=== PATIENT | female | born 1990 | race African-American/Black ===

== ENCOUNTER 2017-06-25 08:54 | Day surgery (SDC) | payer MEDICAID, OTHER ==
[2017-06-25 08:59] VITALS: BMI 38.4
[2017-06-25] MEDS ORDERED: NEOSTIGMINE INJ ONE (09:08)
[2017-06-25] MEDS ORDERED: XYLOCAINE 2 % (PLAIN) ONE (09:08)
[2017-06-25] MEDS ORDERED: ZOFRAN INJ 4 MG VIAL ONE (09:08)
[2017-06-25] MEDS ORDERED: ROBINUL ONE (09:08)
[2017-06-25] MEDS ORDERED: EPHEDRINE SULFATE INJ ONE (09:08)
[2017-06-25] MEDS ORDERED: QUELICIN (OR ANECTINE) ONE (09:08)
[2017-06-25] MEDS ORDERED: NORCURON INJ 10 MG VIAL ONE (09:08)
[2017-06-25] MEDS ORDERED: VERSED ONE (09:08)
[2017-06-25] MEDS ORDERED: DIPRIVAN VIAL ONE (09:08)
[2017-06-25 10:03] LABS: BASOPHILS % (AUTO) 0.3 % (0.2-1.0); EOSINOPHILS % (AUTO) 0.5 % (0.9-2.9); HEMATOCRIT 31.3 % (36.0-47.0); HEMOGLOBIN 10.8 g/dL (12.0-16.0); LYMPHOCYTES # (AUTO) 1.8 X10^3/uL (1.3-2.9); LYMPHOCYTES % (AUTO) 25.8 % (21.0-51.0); MEAN CORPUSCULAR HEMOGLOBIN 28.9 pg (27.0-34.0); MEAN CORPUSCULAR HGB CONC 34.6 g/dL (33.0-35.0); MEAN CORPUSCULAR VOLUME 83.5 fL (80.0-100.0); MEAN PLATELET VOLUME 8.3 fL (7.4-11.0); MONOCYTES # (AUTO) 0.6 x10^3/uL (0.3-0.8); MONOCYTES % (AUTO) 8.2 % (0.0-13.0); NEUTROPHILS # (AUTO) 4.5 x10^3/uL (2.2-4.8); NEUTROPHILS % (AUTO) 65.2 % (42.0-75.0); PLATELET COUNT 209 X10^3/uL (150.0-450.0); RED BLOOD COUNT 3.75 X10^6/uL (3.5-5.4); RED CELL DISTRIBUTION WIDTH 14.1 % (11.6-16.5); WHITE BLOOD COUNT 6.9 X10^3/uL (3.6-10.0)
[2017-06-25 10:27] LABS: ALANINE AMINOTRANSFERASE 17 Units/L (12-78); ALBUMIN 3.4 g/dL (3.4-5.0); ALKALINE PHOSPHATASE 57 Units/L (46-116); ASPARTATE AMINO TRANSFERASE 14 Units/L (15-37); BLOOD UREA NITROGEN 9 mg/dL (7-18); CALCIUM 8.9 mg/dL (8.5-10.1); CARBON DIOXIDE 26.2 mmol/L (21-32); CHLORIDE 104 mmol/L (98-107); CREATININE 0.75 mg/dL (0.55-1.02); SODIUM 135 mmol/L (136-145); TOTAL PROTEIN 7.9 g/dL (6.4-8.2); eGFR BLACK RACES > 60 (>60); eGFR NON BLACK RACES > 60 (>60)
[2017-06-25 10:44] LABS: BILIRUBIN,URINE NEGATIVE (NEGATIVE); BLOOD/HEMOGLOBIN,URINE 1+ (NEGATIVE); GLUCOSE, URINE NEGATIVE (NEGATIVE); KETONES,URINE 2+ (NEGATIVE); LEUKOCYTE ESTERASE ,URINE 2+ (NEGATIVE); NITRITES,URINE NEGATIVE (NEGATIVE); PH,URINE 6.5 (5.0 - 8.0); PROTEIN,URINE 1+ (NEGATIVE); UROBILINOGEN,URINE 1+ (NORMAL)
[2017-06-25 11:05] LABS: APPEARANCE,URINE HAZY (CLEAR); BACTERIA,URINE TRACE /HPF (NEGATIVE); COLOR,URINE DARK YELLOW (YELLOW); HYALINE CASTS, URINE FEW /LPF (NEGATIVE); MUCUS,URINE MODERATE /HPF (NEGATIVE); SQUAMOUS EPITHELIAL CELL,UR MANY /HPF (NEGATIVE)
[2017-06-25 11:14] LABS: HCG,QUANTITATIVE 51992 mIU/mL (0-6)
--- NOTE | 2017-06-25 12:54 | US ---
HISTORY: Pain in pelvis, back and buttock region. Pain since last week. Study: Obstetric ultrasound less than 14 weeks. Comparison: No priors Technique: gama scale, color Doppler and M-mode ultrasound of the pelvis is provided. Findings: Uterus is slightly prominent and is empty. The endometrium measures about 18.3 x 47.6 millimeters. A small amount of posterior cul-de-sac free fluid is present. There is present within the region of the left ovary a gestational sac, yolk sac and a fetus which displays good cardiac activity. The heart r ate ranges from 162- 66 beats per minute. [employer]-rump length of the fetus is 18.7 millimeters compatib le with 8 weeks 3 days. Small amount of fluid is seen surrounding the left ovary and there is increas ed color Doppler flow in this region. Findings are compatible with a left-sided ectopic whi ch likely involves either the ovary or the fimbriated end of the left fallopian tube. The right ovary is normal in size and displays a small simple cyst. Color flow to the region of the right ovary is u nremarkable. IMPRESSION: Findings compatible with a left-sided ectopic as described. This may involve either the lef t ovary or the fimbriated hand of the left fallopian tube. The gestational age of the fetus is about 8 weeks 3 days. Small amount of free fluid is present posterior to the uterus and involving the left adnexal region. Findings discussed with Dr. Santa at 12:47 p.m. On June 25, 2017. Reported By:
[2017-06-25] MEDS ORDERED: NS 50 ML IV 50 ML IV ONE (13:16)
[2017-06-25] MEDS ORDERED: ANCEF VIAL 1 GM ONE (13:16)
[2017-06-25] MEDS ORDERED: BICITRA 30 ML PO ONE (13:42)
[2017-06-25] MEDS ORDERED: FENTANYL INJ 250 mcg ONE (13:46)
--- NOTE | 2017-06-25 13:53 | DR.FBACK ---
HPI - Time Seen Time seen: 09:45 - PCP Primary Care Physician: NA - HPI Comment HPI Comment: NO VAGINAL DISCHARGE OR BLEEDING AND NO FEVER OR DYSURIA. SLIGHT NAUSEA BUT NO VOMITING. - Complaint Chief Complaint Doctor Comments: PATIENT HAVE LOWER ABDOMINAL AND BACK PAIN. 4 MONTHS. Chief Complaint:: PT C/O AT 0700 PT C/O BUTT, BACK, AND ABD PAIN,,, PT IS 4 MONTHS PREG AND SHE HAS NOT SEE AN MD .. PT IS WAITING ON HER MEDICAIDE Self Treatment fo Chief Complaint: G4, P3, A0, L 3 - Reviewed Nurses Notes Review: Yes - Source History Provided: Patient - Mode of Arrival Mode of Arrival: EMS - Timing Onset of Chief Complaint: 06/25/17 - Duration Duration: Constant Duration: Hours - Location Back Pain Location: BACK Radiation To: None - Severity Severity: Moderate - Quality Quality: Sharp - Context Onset: Spontaneous History of: None - Modifying Factors Worsened By: None - Associated Signs and Symptoms Back Pain Symptoms: Nausea Numbness: None Weakness: None PMH - PMH Past Medical History: No Past Surgical History: Yes Past Surgical History Comment: TIMES ONE - Family History History of Family Medical Conditions: No - Social History Does patient currently use any type of tobacco product: No Have you used tobacco products in the last 12 months: No Type of Tobacco Use: None Does any household member use tobacco: No Alcohol Use: None Do you use any recreational Drugs:: No Lives With: Family Lives Where: Home - infectious screening In the last 2 months have you had wt loss of >10#?: NO Have you had fever, night sweats or hemotysis?: No Have you traveled outside the country in the last 6 months?: No Isolation: Standard ROS - Review of Systems Constitutional: No Symptoms Reported Eyes: No Symptoms Reported ENTM: No Symptoms Reported Respiratoy: No Symptoms Reported Cardiovascular: No Symptoms Reported Gastrointestinal/Abdominal: Abdominal Pain, Nausea. negative: Vomiting Genitourinary: No Symptoms Reported Neurological: No Symptoms Reported Musculoskeletal: No Symptoms Reported Integumentary: No Symptoms Reported Hematologic/Lymphatic: No Symptoms Reported Endocrine: No Symptoms Reported All Other Systems: Reviewed and Negative PE - Vitals Vital Signs: Temp Pulse Resp BP BP Pulse Ox 06/25/17 08:55 97.3 F L 86 20 107/55 96 09/09/14 08:00 139/63 139/63 - General Limitations: No Limitations General Appearance: Alert - Head Head Exam: Normal Inspection - Eyes Eye exam: Normal Appearance - ENT ENT Exam: Normal External Ear Exam - Chest Chest Inspection: Symmetric Chest Wall Rise - Respiratory Respiratory Exam: Normal Lung Sounds Bilat Respiratory Exam: Bilateral Clear to Auscultation - Cardiovascular Cardiovascular Exam: Regular Rate, Normal Rhythm, Normal Heart Sounds - Abdominal Exam Abdominal Exam: Normal Bowel Sounds, Soft, Tenderness Abdominal Tenderness: Diffuse, Moderate - Genitourinary External Exam: Female: Deferred : Speculum Exam (Female): Deferred : Bimanual Exam (female): Deferred - Extremities Extremities Exam: Normal Inspection - Back Back Exam: Normal Inspection - Neurological Neurological Exam: Alert, Oriented X3 - Psychiatric Psychiatric Exam: Anxious - Skin Skin Exam: Normal Color MDM - Differential Diagnosis Differential Diagnosis: Bowel Obstruction, Cholelithiasis, Ectopic , Musculoskeletal Pain, Pyelonephritis, Urolithiasis Course - Treatment Treatment: SEE ORDERS - Consultation Consultation Comments: DISCUSS PATIENT WITH DR. HAQUE, SHE WILL TAKE PATIENT TO SURGERY. - Education/Counseling Education/Counseling: Patient Educated On: Diagnosis ROR - Labs Reviewed Laboratory Results Reviewed?: Yes Result Diagrams: 06/25/17 09:45 06/25/17 09:45 Laboratory: WBC 6.9 X10^3/uL (3.6-10.0) 06/25/17 09:45 RBC 3.75 X10^6/uL (3.5-5.4) 06/25/17 09:45 Hgb 10.8 g/dL (12.0-16.0) L 06/25/17 09:45 Hct 31.3 % (36.0-47.0) L 06/25/17 09:45 MCV 83.5 fL (80.0-100.0) 06/25/17 09:45 MCH 28.9 pg (27.0-34.0) 06/25/17 09:45 MCHC 34.6 g/dL (33.0-35.0) 06/25/17 09:45 RDW 14.1 % (11.6-16.5) 06/25/17 09:45 Plt Count 209 X10^3/uL (150.0-450.0) 06/25/17 09:45 MPV 8.3 fL (7.4-11.0) 06/25/17 09:45 Neut % 65.2 % (42.0-75.0) 06/25/17 09:45 Lymph % 25.8 % (21.0-51.0) 06/25/17 09:45 Hinds % 8.2 % (0.0-13.0) 06/25/17 09:45 Eos % 0.5 % (0.9-2.9) L 06/25/17 09:45 Baso % 0.3 % (0.2-1.0) 06/25/17 09:45 Neut # 4.5 x10^3/uL (2.2-4.8) 06/25/17 09:45 Lymph # 1.8 X10^3/uL (1.3-2.9) 06/25/17 09:45 Hinds # 0.6 x10^3/uL (0.3-0.8) 06/25/17 09:45 Eos # 0.0 x10^3/uL (0.0-0.2) 06/25/17 09:45 Baso # 0.0 X10^3/uL (0.0-0.1) 06/25/17 09:45 Absolute Nucleated RBC 0.0 /100WBC 06/25/17 09:45 Sodium 135 mmol/L (136-145) L 06/25/17 09:45 Corrected Sodium TNP 06/25/17 09:45 Potassium 3.5 mmol/L (3.5-5.1) 06/25/17 09:45 Chloride 104 mmol/L (98-107) 06/25/17 09:45 Carbon Dioxide 26.2 mmol/L (21-32) 06/25/17 09:45 BUN 9 mg/dL (7-18) 06/25/17 09:45 Creatinine 0.75 mg/dL (0.55-1.02) 06/25/17 09:45 Est GFR (MDRD) Af Amer > 60 (>60) 06/25/17 09:45 Est GFR (MDRD) Non-Af > 60 (>60) 06/25/17 09:45 Glucose 85 mg/dL (65-99) 06/25/17 09:45 Calcium 8.9 mg/dL (8.5-10.1) 06/25/17 09:45 Corrected Calcium TNP 06/25/17 09:45 Total Bilirubin 0.30 mg/dL (0.2-1.0) 06/25/17 09:45 AST 14 Units/L (15-37) L 06/25/17 09:45 ALT 17 Units/L (12-78) 06/25/17 09:45 Alkaline Phosphatase 57 Units/L (46-116) 06/25/17 09:45 Total Protein 7.9 g/dL (6.4-8.2) 06/25/17 09:45 Albumin 3.4 g/dL (3.4-5.0) 06/25/17 09:45 Globulin 4.5 g/dL (2.5-4.5) 06/25/17 09:45 Albumin/Globulin Ratio 0.8 Ratio (1.1-2.1) L 06/25/17 09:45 HCG, Quant 87804 mIU/mL (0-6) H 06/25/17 09:45 Specimen Type Clean catch urine 06/25/17 10:22 Urine Color Dark yellow (YELLOW) 06/25/17 10:22 Urine Appearance Hazy (CLEAR) 06/25/17 10:22 Urine pH 6.5 (5.0 - 8.0) 06/25/17 10:22 Ur Specific [place] 1.020 (1.000-1.030) 06/25/17 10:22 Urine Protein 1+ (NEGATIVE) 06/25/17 10:22 Urine Glucose (UA) Negative (NEGATIVE) 06/25/17 10:22 Urine Ketones 2+ (NEGATIVE) 06/25/17 10:22 Urine Occult Blood 1+ (NEGATIVE) 06/25/17 10:22 Urine Nitrite Negative (NEGATIVE) 06/25/17 10:22 Urine Bilirubin Negative (NEGATIVE) 06/25/17 10:22 Urine Urobilinogen 1+ (NORMAL) 06/25/17 10:22 Ur Leukocyte Esterase 2+ (NEGATIVE) 06/25/17 10:22 Urine RBC 10-15 /HPF (NEGATIVE) 06/25/17 10:22 Urine WBC 5-10 /HPF (NEGATIVE) 06/25/17 10:22 Ur Squamous Epith Cells Many /HPF (NEGATIVE) 06/25/17 10:22 Urine Bacteria Trace /HPF (NEGATIVE) 06/25/17 10:22 Hyaline Casts Few /LPF (NEGATIVE) 06/25/17 10:22 Urine Mucus Moderate /HPF (NEGATIVE) 06/25/17 10:22 Ur Culture Indicated? Yes/culture set up 06/25/17 10:22 - XRAY XRAY Interpreted by: Radiologist XRAY Findings: REPORT DISCUSS WITH PATIENT. - Diagnosis Discharge Problem: Ectopic - Discharge Plan Disposition: ADMITTED INPATIENT Condition: Stable - Follow ups/Referrals Follow ups/Referrals: NFD,None [Primary Care Provider] - 3 days - Instructions
[2017-06-25] MEDS ORDERED: LEVAQUIN PREMIX IV 750 MG 750 MG/150 ML BAG IV SCH (14:00)
[2017-06-25] MEDS ORDERED: FORTAZ or TAZICEF INJ 2 GM in NS 50 ML IV + SPIKE MINIBAG* 50 ML IV SCH (14:00)
[2017-06-25] MEDS ORDERED: ANCEF VIAL 1 GM 1 GM in NS 50 ML IV + SPIKE MINIBAG* 50 ML IV SCH (14:00)
[2017-06-25] MEDS ORDERED: FORTAZ or TAZICEF INJ IV SCH (14:00)
[2017-06-25] MEDS ORDERED: LR 1000 ML IV 1,000 ML IV SCH ×2 (14:00→22:00)
[2017-06-25] MEDS ORDERED: DUONEB 0.5 MG/3 MG NEB SCH (14:00)
[2017-06-25] MEDS ORDERED: LR 1000 ML IV 1,000 ML IV ONE (14:18)
[2017-06-25] MEDS ORDERED: NS IRRIGATION 1000 ML 1,000 ML IR ONE (14:21)
[2017-06-25 14:42] LABS: BILIRUBIN,URINE NEGATIVE (NEGATIVE); BLOOD/HEMOGLOBIN,URINE NEGATIVE (NEGATIVE); GLUCOSE, URINE NEGATIVE (NEGATIVE); KETONES,URINE 4+ (NEGATIVE); LEUKOCYTE ESTERASE ,URINE 1+ (NEGATIVE); NITRITES,URINE NEGATIVE (NEGATIVE); PROTEIN,URINE 1+ (NEGATIVE); UROBILINOGEN,URINE 1+ (NORMAL)
[2017-06-25] MEDS ORDERED: REGLAN INJ 10 MG VIAL IVP PRN (15:06)
[2017-06-25] MEDS ORDERED: BENADRYL INJ 50 MG VIAL IVP PRN ×2 (15:06→17:08)
[2017-06-25] MEDS ORDERED: PHENERGAN INJ 25 MG IVP PRN (15:06)
[2017-06-25] MEDS ORDERED: ZOFRAN INJ 4 MG VIAL IVP PRN ×2 (15:06→17:08)
[2017-06-25 15:12] LABS: APPEARANCE,URINE CLEAR (CLEAR); BACTERIA,URINE TRACE /HPF (NEGATIVE); COLOR,URINE YELLOW (YELLOW); RBC,URINE NONE SEEN /HPF (NEGATIVE); SQUAMOUS EPITHELIAL CELL,UR RARE /HPF (NEGATIVE)
[2017-06-25 15:13] LABS: MUCUS,URINE FEW /HPF (NEGATIVE); TRICHOMONAS,URINE MODERATE /HPF (NEGATIVE); YEAST,URINE FEW /HPF (NEGATIVE)
[2017-06-25] MEDS: DILAUDID INJ IVP PRN ×3 (15:15→15:35)
[2017-06-25] MEDS ORDERED: DILAUDID INJ ONE (15:16)
[2017-06-25] MEDS ORDERED: PERCOCET TAB 5/325 MG PO PRN (15:22)
[2017-06-25 17:15] LABS: HEMATOCRIT 28.8 % (36.0-47.0); HEMOGLOBIN 9.9 g/dL (12.0-16.0)
[2017-06-25] MEDS: PERCOCET TAB 5/325 MG PO PRN (18:36)
[2017-06-25] MEDS: D5 1/2 NS 1000 ML 1,000 ML IV SCH (19:15)
[2017-06-25] MEDS: ANCEF VIAL 1 GM 1 GM in NS 50 ML IV + SPIKE MINIBAG* 50 ML IV SCH (21:00)
[2017-06-25] MEDS: TORADOL 30 MG VIAL IVP PRN (21:03)
[2017-06-26] MEDS: D5 1/2 NS 1000 ML 1,000 ML IV SCH (02:09)
[2017-06-26] MEDS: TORADOL 30 MG VIAL IVP PRN (04:23)
[2017-06-26] MEDS: ANCEF VIAL 1 GM 1 GM in NS 50 ML IV + SPIKE MINIBAG* 50 ML IV SCH (05:15)
[2017-06-26 06:18] LABS: BASOPHILS % (AUTO) 0.2 % (0.2-1.0); EOSINOPHILS # (AUTO) 0.1 x10^3/uL (0.0-0.2); EOSINOPHILS % (AUTO) 0.8 % (0.9-2.9); HEMATOCRIT 24.9 % (36.0-47.0); HEMOGLOBIN 8.7 g/dL (12.0-16.0); LYMPHOCYTES # (AUTO) 1.8 X10^3/uL (1.3-2.9); LYMPHOCYTES % (AUTO) 22.7 % (21.0-51.0); MEAN CORPUSCULAR HEMOGLOBIN 29.3 pg (27.0-34.0); MEAN CORPUSCULAR HGB CONC 35.2 g/dL (33.0-35.0); MEAN CORPUSCULAR VOLUME 83.4 fL (80.0-100.0); MEAN PLATELET VOLUME 8.3 fL (7.4-11.0); MONOCYTES # (AUTO) 0.7 x10^3/uL (0.3-0.8); MONOCYTES % (AUTO) 9.4 % (0.0-13.0); NEUTROPHILS # (AUTO) 5.2 x10^3/uL (2.2-4.8); NEUTROPHILS % (AUTO) 66.9 % (42.0-75.0); PLATELET COUNT 187 X10^3/uL (150.0-450.0); RED BLOOD COUNT 2.98 X10^6/uL (3.5-5.4); RED CELL DISTRIBUTION WIDTH 14.1 % (11.6-16.5); WHITE BLOOD COUNT 7.8 X10^3/uL (3.6-10.0)
[2017-06-26 06:28] LABS: BLOOD UREA NITROGEN 10 mg/dL (7-18); CALCIUM 8.4 mg/dL (8.5-10.1); CARBON DIOXIDE 25.2 mmol/L (21-32); CHLORIDE 103 mmol/L (98-107); CHOL/HDL RATIO 3.9 (0.0-5.0); CHOLESTEROL 154 mg/dL (0-200); CREATININE 0.94 mg/dL (0.55-1.02); HDL CHOLESTEROL 40 mg/dL (40-60); SODIUM 135 mmol/L (136-145); TRIGLYCERIDES 48 mg/dL (0-150); eGFR BLACK RACES > 60 (>60); eGFR NON BLACK RACES > 60 (>60)
[2017-06-26] MEDS ORDERED: DEPO-PROVERA CONTRACEPTIVE INJ IM ONE (07:15)
[2017-06-26] MEDS ORDERED: MOTRIN TAB 800 MG PO PRN (07:15)
[2017-06-26] MEDS ORDERED: FERROUS SULFATE PO SCH (08:00)
[2017-06-26] MEDS: BACTROBAN OINT TOP SCH ×2 (08:48→09:33)
[2017-06-26] MEDS: PERCOCET TAB 5/325 MG PO PRN (08:50)
[2017-06-26] MEDS ORDERED: COLACE CAP 100 MG PO SCH (09:00)
[2017-06-26 10:19] VITALS: BP 115/54
== END 2017-06-26 10:30 | disposition home or self-care (01) ==
LOC: ER 09:10 → SURG1 14:02 → MED/SURG 15:18
PROVIDERS: ADMIT Specialist; ATTEND Specialist
PROC: 10T Obstetrics, Pregnancy, Resection (ICD-10-PCS; 2017-06-25)
PROC: 0UB60ZZ Excision of Left Fallopian Tube, Open Approach (ICD-10-PCS; principal; 2017-06-25 13:45)
DX: O00.80 Other ectopic pregnancy without intrauterine pregnancy (principal); R10.84 Generalized abdominal pain; D50.8 Other iron deficiency anemias
CPT/HCPCS: 36415; 76801; 80048; 80053; 80061; 81001; 84702; 85014; 85018; 85025; 86850; 86900; 86901; 87086; 96365; 96374; 99283; 99284; A4216; A4222; G0378; J0330; J0690; J1050; J1170; J1885; J2001; J2250; J2405; J2710; J3010; J3490; J7042; J7120

== ENCOUNTER 2019-02-24 12:23 | Inpatient (IN) ==
[2019-02-24] MEDS ORDERED: LR 1000 ML IV 1,000 ML ONE (12:33)
[2019-02-24] MEDS ORDERED: ANCEF 1 GRAM IV PREMIX* 1 G/50 ML BAG IV ONE (12:35)
[2019-02-24 12:37] VITALS: BMI 34.5
[2019-02-24 12:58] LABS: AMNISURE ROM TEST NO MEMBRANES RUPTURE (NO RUPTURE)
[2019-02-24] MEDS ORDERED: DILAUDID INJ ONE ×2 (13:13→15:10)
[2019-02-24] MEDS ORDERED: NS IRRIGATION 1000 ML ONE (13:22)
[2019-02-24 13:26] LABS: BASOPHILS % (AUTO) 0.5 % (0.2-1.0); EOSINOPHILS % (AUTO) 0.5 % (0.9-2.9); HEMATOCRIT 27.4 % (36.0-47.0); HEMOGLOBIN 9.6 g/dL (12.0-16.0); LYMPHOCYTES # (AUTO) 1.6 X10^3/uL (1.3-2.9); LYMPHOCYTES % (AUTO) 23.3 % (21.0-51.0); MEAN CORPUSCULAR HGB CONC 35.2 g/dL (33.0-35.0); MEAN CORPUSCULAR VOLUME 85.4 fL (80.0-100.0); MEAN PLATELET VOLUME 7.6 fL (7.4-11.0); MONOCYTES # (AUTO) 0.5 x10^3/uL (0.3-0.8); MONOCYTES % (AUTO) 8.1 % (0.0-13.0); NEUTROPHILS # (AUTO) 4.6 x10^3/uL (2.2-4.8); NEUTROPHILS % (AUTO) 67.6 % (42.0-75.0); PLATELET COUNT 187 X10^3/uL (150.0-450.0); RED BLOOD COUNT 3.21 X10^6/uL (3.5-5.4); RED CELL DISTRIBUTION WIDTH 14.1 % (11.6-16.5); WHITE BLOOD COUNT 6.8 X10^3/uL (3.6-10.0)
[2019-02-24] MEDS ORDERED: D5 1/2 NS 1L W PITOCIN 20 UNITS/L 20 UNITS/1,000 ML BAG IV ONE ×2 (14:24→15:40)
[2019-02-24 14:25] LABS: BLOOD UREA NITROGEN 6 mg/dL (7-18); CALCIUM 9.1 mg/dL (8.5-10.1); CARBON DIOXIDE 24.1 mmol/L (21-32); CHLORIDE 104 mmol/L (98-107); CREATININE 0.59 mg/dL (0.55-1.02); SODIUM 138 mmol/L (136-145); eGFR NON BLACK RACES > 60 (>60)
[2019-02-24 14:27] LABS: BILIRUBIN,URINE NEGATIVE (NEGATIVE); BLOOD/HEMOGLOBIN,URINE NEGATIVE (NEGATIVE); GLUCOSE, URINE NEGATIVE (NEGATIVE); KETONES,URINE NEGATIVE (NEGATIVE); LEUKOCYTE ESTERASE ,URINE NEGATIVE (NEGATIVE); NITRITES,URINE NEGATIVE (NEGATIVE); PROTEIN,URINE 2+ (NEGATIVE); UROBILINOGEN,URINE NORMAL (NORMAL)
[2019-02-24 14:36] LABS: APPEARANCE,URINE CLEAR (CLEAR); BACTERIA,URINE NEGATIVE /HPF (NEGATIVE); COLOR,URINE YELLOW (YELLOW); MUCUS,URINE FEW /HPF (NEGATIVE); RBC,URINE 0-2 /HPF (NONE SEEN); SQUAMOUS EPITHELIAL CELL,UR RARE /HPF (NEGATIVE)
[2019-02-24] MEDS ORDERED: ZOFRAN INJ 4 MG VIAL IVP PRN ×2 (15:01→15:35)
[2019-02-24] MEDS ORDERED: DILAUDID INJ IVP PRN (15:01)
[2019-02-24] MEDS ORDERED: PHENERGAN INJ 25 MG IM PRN (15:01)
[2019-02-24] MEDS ORDERED: REGLAN INJ 10 MG VIAL IVP PRN ×2 (15:01→15:35)
[2019-02-24] MEDS ORDERED: BENADRYL INJ 50 MG VIAL IVP PRN ×2 (15:01→15:35)
[2019-02-24] MEDS ORDERED: ADACEL or BOOSTRIX TDaP VACCINE IM ONE (15:35)
[2019-02-24] MEDS ORDERED: D5 1/2 NS 1000 ML 1,000 ML with PITOCIN 20 UNITS IV SCH ×2 (15:35)
[2019-02-24] MEDS ORDERED: NARCAN INJ IVP PRN (15:35)
[2019-02-24] MEDS ORDERED: TORADOL 30 MG VIAL IVP PRN (15:35)
[2019-02-24] MEDS ORDERED: PERCOCET TAB 5/325 MG PO PRN (15:35)
[2019-02-24] MEDS ORDERED: VERSED ONE ×2 (15:38)
[2019-02-24] MEDS ORDERED: XYLOCAINE 1 % (PLAIN) ONE (15:38)
[2019-02-24] MEDS ORDERED: PITOCIN ONE (15:38)
[2019-02-24] MEDS: ZANTAC PO SCH (22:09)
[2019-02-25 05:10] LABS: HEMATOCRIT 26.9 % (36.0-47.0); HEMOGLOBIN 9.4 g/dL (12.0-16.0)
[2019-02-25] MEDS: PERCOCET TAB 5/325 MG PO PRN ×3 (08:00→23:23)
[2019-02-25] MEDS: COLACE CAP 100 MG PO SCH ×2 (08:43→21:14)
[2019-02-25] MEDS: NICOTINE PATCH TD SCH (08:44)
[2019-02-25] MEDS: MYLICON TAB 80 MG CHEW PO PRN ×2 (08:44→21:15)
[2019-02-25] MEDS: PRENATAL PLUS PO SCH (08:44)
[2019-02-25] MEDS: ZANTAC PO SCH ×2 (08:44→21:15)
[2019-02-25] MEDS: BACTROBAN CREAM TOP SCH ×2 (13:50→22:00)
[2019-02-25] MEDS: FERROUS GLUCONATE PO SCH (18:17)
[2019-02-25] MEDS: MOTRIN TAB 800 MG PO PRN (21:15)
[2019-02-26] MEDS: BACTROBAN CREAM TOP SCH (05:43)
[2019-02-26] MEDS: FERROUS GLUCONATE PO SCH (06:10)
[2019-02-26] MEDS: PERCOCET TAB 5/325 MG PO PRN (07:35)
[2019-02-26] MEDS ORDERED: DEPO-PROVERA CONTRACEPTIVE INJ IM ONE (07:47)
[2019-02-26] MEDS: NICOTINE PATCH TD SCH (09:35)
[2019-02-26] MEDS: COLACE CAP 100 MG PO SCH (09:35)
[2019-02-26] MEDS: ZANTAC PO SCH (09:36)
[2019-02-26] MEDS: PRENATAL PLUS PO SCH ×2 (09:36→09:42)
[2019-02-26] MEDS: MOTRIN TAB 800 MG PO PRN (09:45)
[2019-02-26 13:28] VITALS: BP 121/59
== END 2019-02-26 13:35 | disposition home or self-care (01) | DRG 788 ==
LOC: ER 12:23 → LD 13:07 → MED/SURG 15:28
PROVIDERS: ADMIT Specialist; ATTEND Specialist
DX: D50.8 Other iron deficiency anemias; O34.211 Maternal care for low transverse scar from previous cesarean delivery; Z37.0 Single live birth; N85.8 Other specified noninflammatory disorders of uterus; Z3A.38 38 weeks gestation of pregnancy; O09.33 Supervision of pregnancy with insufficient antenatal care, third trimester
CPT/HCPCS: 36415; 80048; 80307; 81001; 84112; 85014; 85018; 85025; 86592; 86850; 86900; 86901; 90715; 96365; 96374; 99284; A4216; A4222; S0197; G0434; J0690; J1050; J1170; J1885; J2250; J2405; J2590; J2765; J3490; J7120